=== PATIENT | female | born 1985 | race Caucasian/White ===

== ENCOUNTER 2016-10-16 17:38 | Emergency (ER) | payer OTHER ==
[2016-10-16 17:53] VITALS: BMI 20.1
[2016-10-16 17:58] VITALS: BP 128/90; PULSE 68; RESP 19; TEMP 98.9; O2SAT 99
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
== END 2016-10-16 19:26 | disposition home or self-care (01) ==
LOC: ED 17:38
DX: M54.2 Cervicalgia (principal)